=== PATIENT | female | born 1980 | race Caucasian/White ===

== ENCOUNTER → 2018-04-27 | Outpatient (CLI) | payer OTHER ==
[2018-04-27 12:15] LABS: THYROXINE (T4) 15.3 UG/DL (4.5-12.0)
[2018-04-27 12:15] LABS: THYROID STIMULATING HORMONE 0.678 uIU/ML (0.358-3.740)
[2018-04-27 16:45] LABS: TOTAL T3 137.4 NG/DL (60.0-181.0)
== END ==
LOC: M LRY 09:26
DX: R53.83 Other fatigue (principal)
CPT/HCPCS: 84443